=== PATIENT | male | born 1985 | race American Indian/Alaskan Native ===

== ENCOUNTER 2016-09-28 12:26 | Emergency (ER) | payer OTHER ==
[2016-09-28 12:47] VITALS: RESP 20
--- NOTE | 2016-09-28 13:33 | ED PDOC ---
Arrival/HPI - General Chief Complaint: Cough, Cold, Congestion Time Seen by Provider: 09/28/16 13:18 Historian: Patient - History of Present Illness Narrative History of Present Illness (Text): 09/28/16 13:30 This 30 yo male presents to this ED c/o sore throat, cough x 1 week. Family members have similar symptoms. Patient denies fever, sob, cp, hemoptysis, leg swelling, calf pain, rash, recent travel, dizziness, or abnormal gait. Time/Duration: 1 week Context: Home Past Medical History - Provider Review Nursing Documentation Reviewed: Yes - Infectious Disease Hx of Infectious Diseases: None - Psychiatric Hx Substance Use: No - Anesthesia Hx Anesthesia: No Hx Anesthesia Reactions: No Hx Malignant Hyperthermia: No Family/Social History - Physician Review Nursing Documentation Reviewed: Yes Family/Social History: No Known Family HX Smoking Status: Light Smoker < 10 Cigarettes Daily Hx Alcohol Use: Yes Frequency of alcohol use: Socially Hx Substance Use: No Allergies/Home Meds Allergies/Adverse Reactions: Allergies No Known Allergies Allergy (Verified 09/18/16 14:57) Review of Systems - Review of Systems Constitutional: Normal. absent: Fatigue, Weight Change, Fevers Eyes: Normal. absent: Photophobia ENT: Sore Throat. absent: Voice Changes, Sinus Congestion Respiratory: Cough. absent: SOB, Sputum, Wheezing Cardiovascular: Normal. absent: Chest Pain, Palpitations Gastrointestinal: Normal. absent: Abdominal Pain, Diarrhea, Nausea, Vomiting Genitourinary Male: Normal. absent: Dysuria, Frequency, Hematuria Musculoskeletal: Myalgias. absent: Arthralgias, Back Pain, Neck Pain, Joint Swelling Skin: Normal. absent: Rash Neurological: Normal. absent: Headache, Dizziness, Focal Weakness, Gait Changes , Speech Changes, Facial Droop, Disequilibrium, Seizure Endocrine: Normal Hemo/Lymphatic: Normal Psychiatric: Normal Physical Exam Vital Signs Temp Pulse Resp BP Pulse Ox 09/28/16 14:20 98 F 75 20 125/61 100 09/28/16 12:43 98.1 F 74 20 124/85 98 Temperature: Afebrile Blood Pressure: Normal Pulse: Regular Respiratory Rate: Normal Appearance: Positive for: Well-Appearing, Non-Toxic, Comfortable Pain Distress: None Mental Status: Positive for: Alert and Oriented X 3 - Systems Exam Head: Present: Atraumatic, Normocephalic Pupils: Present: PERRL Extroacular Muscles: Present: EOMI Conjunctiva: Present: Normal Mouth: Present: Moist Mucous Membranes Pharnyx: Present: ERYTHEMA. No: EXUDATE, TONSILS ENLARGED Neck: Present: Normal Range of Motion Respiratory/Chest: Present: Clear to Auscultation, Good Air Exchange. No: Respiratory Distress, Accessory Muscle Use Cardiovascular: Present: Regular Rate and Rhythm, Normal S1, S2. No: Murmurs Abdomen: Present: Normal Bowel Sounds. No: Tenderness, Distention, Peritoneal Signs Back: Present: Normal Inspection. No: CVA Tenderness Upper Extremity: Present: Normal Inspection, Normal ROM, NORMAL PULSES, Neurovascularly Intact, Capillary Refill < 2s. No: Cyanosis, Edema Lower Extremity: Present: Normal Inspection, NORMAL PULSES, Normal ROM, Neurovascularly Intact, Capillary Refill < 2 s. No: Edema, CALF TENDERNESS Neurological: Present: GCS=15, CN II-XII Intact, Speech Normal Skin: Present: Warm, Dry, Normal Color. No: Rashes Psychiatric: Present: Alert, Oriented x 3, Normal Insight, Normal Concentration Medical Decision Making ED Course and Treatment: 09/28/16 14:05 Re-evaluation. Patient feels better. Discussed results and plan with patient who expresses understanding. All questions answered and there is agreement with the plan to discharge home with instructions. Patient stable for discharge. Return if symptoms persist or worsen. Patient presents to this ED c/o sore throat, and cough x 1 week. Physical exam was unremarkable except for mild pharyngeal erythema. Lungs CTA b/l. Patient is requesting ABX. Patient was recommended to see PMD in 1-2 days or to return to ED if symptoms worsen. Re-evaluation Time: 14:05 Reassessment Condition: Re-examined, Improved - Medication Orders Current Medication Orders: Discontinued Medications Amoxicillin (Amoxil 500 Mg Cap) 500 mg PO STAT STA PRN Reason: Protocol Stop: 09/28/16 13:30 Last Admin: 09/28/16 13:45 Dose: 500 mg Ibuprofen (Motrin Tab) 600 mg PO STAT STA Stop: 09/28/16 13:30 Last Admin: 09/28/16 13:43 Dose: 600 mg Disposition/Present on Arrival - Present on Arrival Any Indicators Present on Arrival: No History of DVT/PE: No History of Uncontrolled Diabetes: No Urinary Catheter: No History of Decub. Ulcer: No History Surgical Site Infection Following: None - Disposition Have Diagnosis and Disposition been Completed?: Yes Diagnosis: Pharyngitis Disposition: HOME/ ROUTINE Disposition Time: 14:05 Patient Plan: Discharge Condition: GOOD Discharge Instructions (ExitCare): Pharyngitis (ED) Additional Instructions: Call private doctor for follow up visit in 1-2 days. Take medication as instructed. Return to emergency if symptoms worsen. Change toothbrush in 5 days Prescriptions: Amoxicillin [Amoxil 500 mg Cap] 500 mg PO TID #30 cap Promethazine DM [Dextromethorphan/Promethazine 15 MG/5 Ml-6.25] 5 ml PO Q4H PRN #180 ml PRN Reason: Cough Referrals: William Ge MD [Primary Care Provider] - Follow up with primary [facility] [Outside] - Follow up with primary [facility] [Outside] - Follow up with primary Forms: [employer]charge ([place]), WORK NOTE
[2016-09-28 14:20] VITALS: BP 125/61; PULSE 75; TEMP 98; O2SAT 100
== END 2016-09-28 14:23 | disposition home or self-care (01) ==
LOC: ED 12:26 → MERGE 12:26 → ED 14:23
DX: J02.9 Acute pharyngitis, unspecified (principal)

== ENCOUNTER 2017-01-15 21:40 | Emergency (ER) | payer OTHER ==
[2017-01-15 21:41] VITALS: BMI 27.1
[2017-01-15 21:42] VITALS: RESP 18; O2SAT 100
--- NOTE | 2017-01-15 22:39 | ED PDOC ---
Arrival/HPI - General Chief Complaint: Seizure Time Seen by Provider: 01/15/17 21:44 Historian: Patient, Family - History of Present Illness Narrative History of Present Illness (Text): 01/15/17 22:38 Malathi Lockhart is a 31 year old male, with no significant past medical history, who presents to the ED following episodes increased anxiety and hyperventilation culminating in near-syncopal episode tonight. This occurred while patient was present in the ER with his son who was a patient tonight experiencing recurrent seizures. Patient was overcome and was caught by staff before falling to the floor. Patient states he currently feels better. Patient was administered Ativan, which helped him to relax. Patient was back to normal shortly following this episode. There was no loss of consciousness, tongue biting, tonic-clonic movements, or urinary incontinence. Patient denies any headache, dizziness, vision changes, focal deficits, chest pain, shortness of breath, abdominal pain, nausea, vomiting, diarrhea, urinary symptoms, back pain , neck pain, or any other complaints. Time/Duration: Other (tonight) Symptom Onset: Sudden Symptom Course: Improving Activities at Onset: Emotional Upset Context: Other (ER) Past Medical History - Provider Review Nursing Documentation Reviewed: Yes - Infectious Disease Hx of Infectious Diseases: None - Psychiatric Hx Substance Use: No - Anesthesia Hx Anesthesia: No Hx Anesthesia Reactions: No Hx Malignant Hyperthermia: No Family/Social History - Physician Review Nursing Documentation Reviewed: Yes Family/Social History: Unknown Family HX Smoking Status: Light Smoker < 10 Cigarettes Daily Hx Alcohol Use: Yes Hx Substance Use: No Allergies/Home Meds Allergies/Adverse Reactions: Allergies No Known Allergies Allergy (Verified 09/18/16 14:57) Review of Systems - Physician Review All systems were reviewed & negative as marked: Yes - Review of Systems Constitutional: Normal. absent: Fevers Eyes: Normal ENT: Normal Respiratory: Normal. absent: SOB, Cough Cardiovascular: Normal. absent: Chest Pain Gastrointestinal: Normal. absent: Abdominal Pain, Diarrhea, Nausea, Vomiting Genitourinary Male: Normal. absent: Dysuria, Frequency, Hematuria, Urinary Output Changes Musculoskeletal: Normal. absent: Back Pain, Neck Pain Skin: Normal. absent: Rash Neurological: Normal. absent: Headache, Dizziness Endocrine: Normal Hemo/Lymphatic: Normal Psychiatric: Anxiety Physical Exam Vital Signs Reviewed: Yes Vital Signs Temp Pulse Resp BP Pulse Ox 01/16/17 00:53 75 18 135/42 L 100 01/15/17 21:42 98.2 F 80 18 134/56 L 100 Temperature: Afebrile Blood Pressure: Normal Pulse: Regular Respiratory Rate: Normal Appearance: Positive for: Well-Appearing, Non-Toxic, Comfortable Pain Distress: None Mental Status: Positive for: Alert and Oriented X 3 Finger Stick Blood Glucose: 72 - Systems Exam Head: Present: Atraumatic, Normocephalic Pupils: Present: PERRL Extroacular Muscles: Present: EOMI Conjunctiva: Present: Normal Mouth: Present: Moist Mucous Membranes Neck: Present: Normal Range of Motion Respiratory/Chest: Present: Clear to Auscultation, Good Air Exchange. No: Respiratory Distress, Accessory Muscle Use Cardiovascular: Present: Regular Rate and Rhythm, Normal S1, S2. No: Murmurs Abdomen: Present: Normal Bowel Sounds. No: Tenderness, Distention, Peritoneal Signs Back: Present: Normal Inspection Upper Extremity: Present: Normal Inspection. No: Cyanosis, Edema Lower Extremity: Present: Normal Inspection. No: Edema Neurological: Present: GCS=15, CN II-XII Intact, Speech Normal, Motor Func Grossly Intact, Normal Sensory Function, Normal Cerebellar Funct, Memory Normal Skin: Present: Warm, Dry, Normal Color. No: Rashes Psychiatric: Present: Alert, Oriented x 3, Normal Insight, Normal Concentration Medical Decision Making ED Course and Treatment: 01/15/17 22:39 Impression: 31 year old male for episode of anxiety/hyperventilation tonight. Differential Diagnosis included but are not limited to: anxiety Plan: -- CT Head w/o contrast -- EKG -- CXR -- Labs -- Ativan -- Reassess and disposition Progress Notes: 01/16/17 00:00 Reviewed radiology, CXR shows no acute processes CT Head shows: Brain: No intracranial hemorrhage. No mass. No definite edema. Ventricles: No hydrocephalus. Bones/joints: No acute fracture. Soft tissues: Unremarkable. Sinuses: Scattered minimal to mild mucosal thickening. Mastoid air cells: No mastoid effusion. Orbits: Unremarkable as visualized. IMPRESSION: 1. No definite acute intracranial abnormality. 2. Incidental/non-acute findings are described above. 01/16/17 00:30 Reviewed EKG, sinus bradycardia at 50 bpm. Non-specific ST/T wave changes On re-evaluation, pt is asymptomatic. States he feels fine. Workup was normal. Patient is stable for discharge. Patient was instructed to follow up with physician/clinic in 1-2 days or return if symptoms persist/worsen or new concerning symptoms arise. - Lab Interpretations Lab Results: 01/15/17 21:44 01/15/17 21:44 Lab Results 01/15/17 21:44: WBC 7.8, RBC 5.21, Hgb 16.0, Hct 44.2, MCV 84.8, MCH 30.7, MCHC 36.2, RDW 13.4, Plt Count 268, MPV 10.3 01/15/17 21:44: Sodium 141, Potassium 3.2 L, Chloride 102, Carbon Dioxide 22, Anion Gap 20, BUN 15, Creatinine 0.9, Est GFR ( Amer) > 60, Est GFR (Non- Af Amer) > 60, Random Glucose 101, Calcium 9.9, Total Bilirubin 1.4 H, AST 42, ALT 54, Alkaline Phosphatase 75, Total Protein 8.5 H, Albumin 5.2 H, Globulin 3.2, Albumin/Globulin Ratio 1.6 01/15/17 21:44: PT 12.3 H, INR 1.14 H, APTT 27.3 I have reviewed the lab results: Yes - RAD Interpretation Radiology Orders: 01/15/17 22:41 HEAD W/O CONTRAST [CT] Stat Log Hauler: ED Physician, Radiologist - EKG Interpretation Interpreted by ED Physician: Yes Type: 12 lead EKG - Medication Orders Current Medication Orders: Discontinued Medications Lorazepam (Ativan) 2 mg IM ONCE ONE PRN Reason: Protocol Stop: 01/15/17 22:11 Last Admin: 01/15/17 22:24 Dose: 2 mg Comments: given @ [id number] ? active seizure pulled from another patient's name (Jeff Gastelum) due to above Potassium Chloride (K-Dur 20 Meq Er Tab) 20 meq PO STAT STA Stop: 01/16/17 00:12 Last Admin: 01/16/17 00:23 Dose: 20 meq - Scribe Statement The provider has reviewed the documentation as recorded by the Geenvieveibtanesha Bee Provider Scribe Attestation: All medical record entries made by the Scribe were at my direction and personally dictated by me. I have reviewed the chart and agree that the record accurately reflects my personal performance of the history, physical exam, medical decision making, and the department course for this patient. I have also personally directed, reviewed, and agree with the discharge instructions and disposition. Disposition/Present on Arrival - Present on Arrival Any Indicators Present on Arrival: No History of DVT/PE: No History of Uncontrolled Diabetes: No Urinary Catheter: No History of Decub. Ulcer: No History Surgical Site Infection Following: None - Disposition Have Diagnosis and Disposition been Completed?: Yes Diagnosis: Anxiety, Hyperventilation, Near syncope Disposition: HOME/ ROUTINE Disposition Time: 00:20 Patient Plan: Discharge Condition: STABLE Discharge Instructions (ExitCare): Hyperventilation (ED), Near Syncope (ED), Anxiety (ED) Additional Instructions: Rest/no strenuous physical activity/follow up with your doctor this week Referrals: Kb James, [Primary Care Provider] - Follow up with primary Forms: [employer] ([place]am[place]ian)
[2017-01-15 22:50] LABS: MEAN CELL VOLUME 84.8 fl (80.0-105.0); MEAN CORPUSCULAR HEMOGLOBIN 30.7 pg (25.0-35.0); MEAN CORPUSCULAR HGB CONC 36.2 g/dl (31.0-37.0); MEAN PLATELET VOLUME 10.3 fl (7.0-11.0); RBC 5.21 10^6/uL (3.5-6.1); RED CELL DISTRIBUTION WIDTH 13.4 % (11.5-14.5); WHITE BLOOD COUNT 7.8 10^3/ul (4.5-11.0)
[2017-01-15 22:58] LABS: ALB/GLOB RATIO 1.6 (1.1-1.8); ALBUMIN 5.2 g/dL (3.0-4.8); ALT/SGPT 54 U/L (7-56); AST/SGOT 42 U/L (15-59); BLOOD UREA NITROGEN 15 mg/dL (7-21); CALCIUM 9.9 mg/dL (8.4-10.5); GFR AFRICAN-AMERICAN > 60; GFR NON-AFRICAN AMERICAN > 60
[2017-01-15 23:04] VITALS: TEMP 98.2
[2017-01-15 23:19] LABS: INR 1.14 (0.93-1.08); PARTIAL THROMBOPLASTIN TIME 27.3 Seconds (23.7-30.8); PROTHROMBIN TIME 12.3 Seconds (9.9-11.8)
--- NOTE | 2017-01-15 23:27 | CT ---
EXAM: CT Head Without Intravenous Contrast CLINICAL HISTORY: 31 years old, male; Signs and symptoms; Other: Seizure TECHNIQUE: Axial computed tomography images of the head/brain without intravenous contrast. All CT scans at this facility use one or more dose reduction techniques, viz.: automated exposure control; ma/kV adjustment per patient size (including targeted exams where dose is matched to indication; i.e. head); or iterative reconstruction technique. COMPARISON: No relevant prior studies available. FINDINGS: Brain: No intracranial hemorrhage. No mass. No definite edema. Ventricles: No hydrocephalus. Bones/joints: No acute fracture. Soft tissues: Unremarkable. Sinuses: Scattered minimal to mild mucosal thickening. Mastoid air cells: No mastoid effusion. Orbits: Unremarkable as visualized. IMPRESSION: 1. No definite acute intracranial abnormality. 2. Incidental/non-acute findings are described above.
[2017-01-16] MEDS ORDERED: Potassium Chloride 20 mEq ER Tab PO STA (00:11)
[2017-01-16 00:53] VITALS: BP 135/42; PULSE 75
--- NOTE | 2017-01-16 09:37 | CARD ---
APPROVED REPORT EKG Measurement Heart [id number] <Conclusion> Sinus bradycardia Nonspecific ST abnormality Abnormal ECG
== END 2017-01-16 00:54 | disposition home or self-care (01) ==
LOC: ED 21:40
DX: F41.9 Anxiety disorder, unspecified (principal); R55 Syncope and collapse; R06.4 Hyperventilation
CPT/HCPCS: 70450; 80053; 85027; 85610; 85730; 93005; 96372; 99285; J2060

== ENCOUNTER 2017-08-07 02:53 | Emergency (ER) | payer OTHER ==
[2017-08-07] MEDS ORDERED: DiphenhydrAMINE 50 mg/ml Inj IVP ONE (03:09)
[2017-08-07 03:10] VITALS: RESP 18; TEMP 98.7; O2SAT 97; BMI 28.7
[2017-08-07] MEDS ORDERED: Sodium Chloride 0.9% 1,000 ML IV SCH (03:15)
--- NOTE | 2017-08-07 03:22 | ED PDOC ---
Arrival/HPI - General Chief Complaint: Abdominal Pain Time Seen by Provider: 08/07/17 03:05 Historian: Patient - History of Present Illness Narrative History of Present Illness (Text): 08/07/17 03:19 A 31 year old male, with past medical history migraines, presents to the emergency department for evaluation of migraine headache discomfort. The patient states that he has been feeling nauseous and vomited this evening. The patient notes that his symptoms feel similar to previous migraine episodes. The patient denies fevers, chills, chest pain, shortness of breath, dyspnea on exertion, cough, abdominal pain, diarrhea, back pain, neck pain, urinary/bowel changes, or any other complaint. Time/Duration: Prior to Arrival Symptom Onset: Sudden Symptom Course: Unchanged Activities at Onset: Rest, Light Context: Home Past Medical History - Provider Review Nursing Documentation Reviewed: Yes - Infectious Disease Hx of Infectious Diseases: None - Cardiac Hx Cardiac Disorders: No - Pulmonary Hx Respiratory Disorders: Yes Hx Asthma: Yes - Neurological Hx Neurological Disorder: No - HEENT Hx HEENT Disorder: No - Renal Hx Renal Disorder: No - Endocrine/Metabolic Hx Endocrine Disorders: No - Hematological/Oncological Hx Blood Disorders: No - Integumentary Hx Dermatological Disorder: No - Musculoskeletal/Rheumatological Hx Musculoskeletal Disorders: Yes - Gastrointestinal Hx Gastrointestinal Disorders: No - Genitourinary/Gynecological Hx Genitourinary Disorders: No - Psychiatric Hx Psychophysiologic Disorder: No Hx Substance Use: No - Anesthesia Hx Anesthesia: No Hx Anesthesia Reactions: No Hx Malignant Hyperthermia: No Family/Social History - Physician Review Nursing Documentation Reviewed: Yes Family/Social History: No Known Family HX Smoking Status: Light Smoker < 10 Cigarettes Daily Hx Alcohol Use: Yes Hx Substance Use: No Allergies/Home Meds Allergies/Adverse Reactions: Allergies No Known Allergies Allergy (Verified 08/07/17 03:17) Review of Systems - Review of Systems Constitutional: absent: Fevers, Night Sweats Respiratory: absent: SOB, Cough Cardiovascular: absent: Chest Pain Gastrointestinal: Nausea, Vomiting. absent: Abdominal Pain, Diarrhea Genitourinary Male: absent: Urinary Output Changes Musculoskeletal: absent: Back Pain, Neck Pain Neurological: Headache Physical Exam Vital Signs Reviewed: Yes Vital Signs Temp Pulse Resp BP Pulse Ox 08/07/17 03:09 98.7 F 89 18 145/94 H 97 Temperature: Afebrile Blood Pressure: Hypertensive Pulse: Regular Respiratory Rate: Normal Appearance: Positive for: Well-Appearing, Non-Toxic, Comfortable Pain Distress: None Mental Status: Positive for: Alert and Oriented X 3 - Systems Exam Head: Present: Atraumatic, Normocephalic Pupils: Present: PERRL Extroacular Muscles: Present: EOMI Conjunctiva: Present: Normal Mouth: Present: Moist Mucous Membranes Neck: Present: Normal Range of Motion. No: Meningeal Signs Respiratory/Chest: Present: Clear to Auscultation, Good Air Exchange. No: Respiratory Distress, Accessory Muscle Use Cardiovascular: Present: Regular Rate and Rhythm, Normal S1, S2. No: Murmurs Abdomen: Present: Normal Bowel Sounds. No: Tenderness, Distention, Peritoneal Signs Back: Present: Normal Inspection Upper Extremity: Present: Normal Inspection. No: Cyanosis, Edema Lower Extremity: Present: Normal Inspection. No: Edema Neurological: Present: GCS=15, CN II-XII Intact, Speech Normal, Motor Func Grossly Intact, Normal Sensory Function, Normal Cerebellar Funct Skin: Present: Warm, Dry, Normal Color. No: Rashes Psychiatric: Present: Alert, Oriented x 3, Normal Insight, Normal Concentration Medical Decision Making ED Course and Treatment: 08/07/17 03:22 Impression: A 31 year old male presents to the emergency department complaining of migraine headache discomfort with associated nausea and vomiting. Plan: -- Benadryl, Reglan, Toradol, and IV Fluids -- Reassess and disposition Progress Notes: - Medication Orders Current Medication Orders: Sodium Chloride (Sodium Chloride 0.9%) 1,000 mls @ 100 mls/hr IV .Q10H GABRIELLE Last Admin: 08/07/17 03:40 Dose: 100 mls/hr eMAR Start Stop Document 08/07/17 03:40 IT (Rec: 08/07/17 03:40 IT [facility] [id number] Intravenous Solution Start Date 08/07/17 Start Time 03:40 Discontinued Medications Diphenhydramine HCl (Benadryl) 25 mg IVP ONCE ONE Stop: 08/07/17 03:10 Last Admin: 08/07/17 03:40 Dose: 25 mg IVP Administration Document 08/07/17 03:40 IT (Rec: 08/07/17 03:40 IT [facility] [id number] Charges for Administration # of IVP Administrations 1 Ketorolac Tromethamine (Toradol) 30 mg IVP ONCE ONE Stop: 08/07/17 03:10 Last Admin: 08/07/17 03:40 Dose: 30 mg MAR Pain Assessment Document 08/07/17 03:40 IT (Rec: 08/07/17 03:40 [place] [facility] [id number] Pain Reassessment Is this a pain reassessment? No Sleep Is patient sleeping during reassessment? No Presence of Pain Presence of Pain Yes IVP Administration Document 08/07/17 03:40 IT (Rec: 08/07/17 03:40 IT [facility] [id number] Charges for Administration # of IVP Administrations 1 Metoclopramide HCl (Reglan) 10 mg IVP ONCE ONE Stop: 08/07/17 03:10 Last Admin: 08/07/17 03:40 Dose: 10 mg IVP Administration Document 08/07/17 03:40 IT (Rec: 08/07/17 03:40 IT [facility] [id number] Charges for Administration # of IVP Administrations 1 - Scribe Statement The provider has reviewed the documentation as recorded by the Genevieveibe Vicki Sharp Provider Scribe Attestation: All medical record entries made by the Scribe were at my direction and personally dictated by me. I have reviewed the chart and agree that the record accurately reflects my personal performance of the history, physical exam, medical decision making, and the department course for this patient. I have also personally directed, reviewed, and agree with the discharge instructions and disposition. Disposition/Present on Arrival - Present on Arrival Any Indicators Present on Arrival: No History of DVT/PE: No History of Uncontrolled Diabetes: No Urinary Catheter: No History of Decub. Ulcer: No History Surgical Site Infection Following: None - Disposition Have Diagnosis and Disposition been Completed?: Yes Diagnosis: Migraine headache Disposition: HOME/ ROUTINE Disposition Time: 05:51 Patient Plan: Discharge Condition: GOOD Discharge Instructions (ExitCare): Migraine Headache (DC) Additional Instructions: Rest/take meds as prescribed/follow up with your doctor this week Prescriptions: Acetaminophen/Butalbital/Caf [Fioricet] 1 tab PO Q6 PRN #16 tab PRN Reason: Headache Forms: [employer] (Setswana)
[2017-08-07 05:54] VITALS: BP 111/76; PULSE 62
== END 2017-08-07 05:57 | disposition home or self-care (01) ==
LOC: ED 02:53
DX: G43.909 Migraine, unspecified, not intractable, without status migrainosus (principal)
CPT/HCPCS: 96374; 96375; 99283; J1200; J1885; J2765; J7040